=== PATIENT | male | born 2000 | race Caucasian/White ===

== ENCOUNTER 2020-04-07 12:16 | Emergency (ER) | payer BC, SELFPAY ==
--- NOTE | ~2020-04-07 | XR_ITS ---
EXAMINATION: XR facial bones min 3V, XR nasal bones min 3V DATE: 04/07/2020 12:54 (accession [id number]), 04/07/2020 12:55 (accession [id number]) INDICATION: Epistaxis and pain and swelling to the nose post injury. TECHNIQUE: 1. AP, Teague, submental and lateral views of the skull were obtained. 2. Frontal and left and right lateral views of the nasal bones were obtained. COMPARISON: None. FINDINGS: No fractures identified. Specifically the calvarium, nasal bones, pillai of the orbits and paranasal sinuses appear intact. Nasal septum is midline. No mucosal thickening or air-fluid levels appreciated within the paranasal sinuses or mastoid air cells. IMPRESSION: 1. Normal skull and nasal bones. Reviewed, dictated and finalized at location A. [facility] NURSE IMPRESSION: 1. Normal skull and nasal bones.
[2020-04-07 12:18] VITALS: BP 129/89; PULSE 81; RESP 17; TEMP 36.8; O2SAT 100
--- NOTE | 2020-04-07 13:12 | ED.GENADULT ---
HPI - General Adult General Chief complaint: Unspecified Stated complaint: nosebleed Time Seen by Provider: 04/07/20 12:46 History of Present Illness HPI narrative: Patient is a 20-year-old male who presents ER after getting hit in the face playing basketball. Was struck in the nose. Has swelling over the nasal bridge. Had a small nosebleed that has since resolved. No other complaints or issues. No LOC. Related Data Allergies Allergy/AdvReac Type Severity Reaction Status Date / Time No Known Allergies Allergy Mild Verified 04/07/20 12:21 Review of Systems ENT: Reports epistaxis, Denies mouth pain, Denies nasal congestion and Reports nasal trauma Respiratory: Respiratory: Denies cough and Denies dyspnea on exertion Neurologic: Denies dizziness and Denies syncope [facility] Past Medical History Medical History (Updated 04/07/20 @ 13:31 by Kerwin Laureano MD) Healthy adult male Surgical History Surgical History History of tonsillectomy and adenoidectomy Social History Social History Smoking status: Never smoker Gender identity (if verbalized by the patient): Male Exam Narrative: Exam Narrative: GENERAL: Well-appearing, well-nourished, and in no acute distress. HEAD: Normocephalic, atraumatic. ENT: Nares clear, no rhinorrhea or epistaxis, there is no evidence of recent bleeding in left nostril. Swelling tenderness over the bridge of the nose. Mucous membranes moist. NEURO: Alert and oriented x3. PSYCH: Normal mood and affect. Course Course Emergency Course: informed of results. d/c. Vital Signs Vital signs: Vital Signs Temperature 98.2 F 04/07/20 12:18 Pulse Rate 81 04/07/20 12:18 Respiratory Rate 17 04/07/20 12:18 Blood Pressure 129/89 04/07/20 12:18 Pulse Oximetry 100 04/07/20 12:18 Temperature 98.2 F 04/07/20 12:18 Pulse Rate 81 04/07/20 12:18 Respiratory Rate 17 04/07/20 12:18 Blood Pressure 129/89 04/07/20 12:18 Pulse Oximetry 100 04/07/20 12:18 Medical Decision Making Vital Signs Vital Signs: Vital Signs Temperature 98.2 F 04/07/20 12:18 Pulse Rate 81 04/07/20 12:18 Respiratory Rate 17 04/07/20 12:18 Blood Pressure 129/89 04/07/20 12:18 Pulse Oximetry 100 04/07/20 12:18 Temperature 98.2 F 04/07/20 12:18 Pulse Rate 81 04/07/20 12:18 Respiratory Rate 17 04/07/20 12:18 Blood Pressure 129/89 04/07/20 12:18 Pulse Oximetry 100 04/07/20 12:18 Imaging Data Radiologist's impression: ITS Impressions Face X-Ray 04/07/20 13:22 IMPRESSION: 1. Normal skull and nasal bones. Nasal Bones X-Ray 04/07/20 13:22 IMPRESSION: 1. Normal skull and nasal bones. Discharge Plan Discharge Clinical Impression: Contusion of nose Patient Disposition: Home, Self-Care Condition: Stable Instructions: Facial Contusion (ED) Additional Instructions: Return the ER if you cannot breathe, you lose consciousness, you have additional concerns. Take Tylenol or ibuprofen as needed for pain. Follow-up/Referrals: Brigitte Carolina MD [Primary Care Provider] -
== END 2020-04-07 13:33 | disposition home or self-care (01) ==
PROVIDERS: Emergency Provider Emergency Medicine; PCP Family Medicine
DX: S00.33XA Contusion of nose, initial encounter (principal); Y93.67 Activity, basketball; W21.05XA Struck by basketball, initial encounter
CPT/HCPCS: 70150; 70160; 99283

== ENCOUNTER 2020-08-15 10:59 | Outpatient (CLI) | payer BC, SELFPAY ==
[2020-08-15 11:36] LABS: Basophils Absolute Auto 0.1 K/mm3 (0.0-0.1); Basophils Percent Auto 0.4 % (0.2-1.2); Eosinophils Percent Auto 0.2 % (0-4.4); Hematocrit 44.6 % (42.0-52.0); Hemoglobin 15.1 g/dL (14.0-18.0); Immature Granulocyte Absolute 0.22 K/mm3 (0.00-0.031); Immature Granulocyte Percent A 1.1 % (0-0.5); Lymphocytes Absolute Auto 1.16 K/mm3 (0.9-3.2); Mean Corpuscular HGB Conc 33.9 g/dl (32-36); Mean Corpuscular Hemoglobin 29.1 pg (26-34); Mean Corpuscular Volume 85.9 fl (80-100); Mean Platelet Volume 8.5 fl (7.4-10.4); Monocytes Absolute Auto 1.2 K/mm3 (0.1-0.6); Neutrophils Absolute Auto 16.6 K/mm3 (1.3-6.7); Neutrophils Percent Auto 86.3 % (45.5-73.1); Platelet Count Result 280 k/mm3 (150-375); Red Blood Count 5.19 M/mm3 (4.6-6.20); Red Cell Distribution Width 12.6 % (11.5-14.5); White Blood Count 19.2 K/mm3 (4.5-10.0)
== END 2020-08-15 11:00 | disposition home or self-care (01) ==
PROVIDERS: PCP Family Medicine; Visit Provider Physician Assistant
DX: L03.90 Cellulitis, unspecified (principal)
CPT/HCPCS: 36415; 85025; 87040

== ENCOUNTER 2021-10-14 18:31 | Emergency (ER) | payer BC, SELFPAY ==
--- NOTE | 2021-10-14 18:37 | ED.URI ---
HPI - URI/Sore Throat General Chief Complaint: Upper Respiratory Infection Stated Complaint: Headaches x5 days Time Seen by Provider: 10/14/21 18:41 Source: patient and RN notes reviewed Mode of arrival: ambulatory Limitations: no limitations History of Present Illness HPI Narrative: 21-year-old male presents to the [facility] with complaints of a frontal headache for 5 days. No treatment prior to arrival. No nausea vomiting or diarrhea. No chest pain or abdominal pain. No sinus congestion or rhinorrhea. No blurry vision or change in vision. No neurologic changes. Denies any photo or phono sensitivity, denies dizziness. Using his cell phone without distress MD elicited complaint: other (Frontal headache) Related Data Home Medications Medication Instructions Recorded Confirmed No Home Medications 10/14/21 10/14/21 Allergies Allergy/AdvReac Type Severity Reaction Status Date / Time No Known Allergies Allergy Mild Verified 10/14/21 18:32 Review of Systems Review of Systems: All systems reviewed & are unremarkable except as noted in HPI and below Constitutional: Constitutional: Reports no additional constitutional complaints, Denies chills and Denies fever(s) Eyes: Eyes: Reports no additional eye complaints ENT: Reports system reviewed and no additional complaints, except as documented Cardiovascular: Cardiovascular: Reports no additional cardiovascular complaints Respiratory: Respiratory: Reports no additional respiratory complaints Gastrointestinal: Gastrointestinal: Reports no additional gastrointestinal complaints Musculoskeletal: Musculoskeletal: Reports no additional musculoskeletal complaints Integumentary/Breasts: Skin/Breast: Reports system reviewed and no additional complaints, except as docu Neurologic: Reports system reviewed and no additional complaints, except as documented Psychiatric: Psychiatric: Reports no additional psychiatric complaints Allergic/Immunologic: Allergic/Immunologic: Reports no additional allergic/immunologic complaints [facility] Past Medical History Medical History (Updated 10/14/21 @ 18:50 by Yvonne Gleason APRN) Healthy adult male Surgical History Surgical History History of tonsillectomy and adenoidectomy Social History Social History Smoking status: Never smoker Alcohol intake: never Substance use: never Substance use type: does not use Gender identity (if verbalized by the patient): Male Comments At the time of my signature, I reviewed and agree with the nursing past medical, surgical, social, and family history. There is no relevant family history pertinent to the patient complaint. Exam Const: General: healthy appearing, no acute distress and alert Nutritional Appearance: well nourished Orientation/consciousness: patient oriented x3 Limitations: no limitations HENMT: Head: normal to inspection Ears: external ears normal General nose exam: Normal external nose present Face and sinus: normal facial exam Throat: posterior oropharynx normal and uvula midline Eyes: General: appearance normal, both eyes and all related structures Pupils: Equal, round and reactive pupils present Neck: Neck: normal visual inspection, no lymphadenopathy and no meningeal signs Chest: Chest palpation & inspection: normal inspection of the chest Resp: Effort & Inspection: normal respiratory effort and no use of accessory muscles Auscultation: clear to auscultation bilaterally, no crackles, no rales, no rhonchi and no wheezes Cardio: Rate: regular rate Rhythm: regular rhythm GI: GI Palp: Yes Soft to palpation and No Tenderness to palpation present (GI) Back/Spine/Pelvis: Cervical Spine: normal cervical lordosis Thoracic/Lumbar Spine: thoracic and lumbar spine normal to inspection Skin: General skin exam: normal color Rashes: no rashes Wounds: n
[2021-10-14 18:39] VITALS: BP 131/80; PULSE 51; RESP 16; TEMP 36.4; O2SAT 100
== END 2021-10-14 18:52 | disposition home or self-care (01) ==
PROVIDERS: Emergency Provider Nurse Practitioner; PCP Family Medicine
DX: R51.9 Headache, unspecified (principal)
CPT/HCPCS: 99211; G0463

== ENCOUNTER 2022-01-12 16:01 | Emergency (ER) | payer BC, SELFPAY ==
--- NOTE | ~2022-01-12 | XR_ITS ---
EXAM: XR finger 1st LT min 2V DATE: 01/12/2022 16:35 HISTORY: hyperextended lt thumb, pain bruising proximal metacarpal . COMPARISON: None available. FINDINGS: Normal mineralization. No fracture or dislocation. No lytic or blastic lesion. Joint space s and physes are maintained. No erosion or periosteal change. Soft tissues within normal limits. IMPRESSION: No acute osseous finding in the left thumb. Reviewed, dictated and finalized at location K.
[2022-01-12 16:23] VITALS: BP 127/72; PULSE 55; RESP 18; TEMP 36.7; O2SAT 100
--- NOTE | 2022-01-12 17:02 | ED.GENADULT ---
HPI - General Adult General Chief complaint: Extremity Injury, Upper Stated complaint: lt thumb injury History of Present Illness HPI narrative: Patient is a 21-year-old male who presents to the [facility] via POV for evaluation of a left thumb injury that occurred 6 days ago. He reports injury occurred while playing basketball when he accidentally ran into another opponent hyperextended left thumb. He reports bruising, swelling pain, and limited range of motion. Umair wrap and remaining still provides some relief. Movement increases pain. Related Data Home Medications Medication Instructions Recorded Confirmed No Home Medications 10/14/21 01/12/22 Allergies Allergy/AdvReac Type Severity Reaction Status Date / Time No Known Allergies Allergy Mild Verified 01/12/22 16:53 Review of Systems Review of Systems: Pertinent negatives: fever, chills, sweats, change in appetite, poor p.o. intake, malaise, rash, warmth, numbness, tingling, loss of sensation, deformity, weakness, difficulty with ambulation/coordination, nausea, vomiting, lymphadenopathy, shortness of breath, chest pain, heart palpitations, and heart murmur. COUNT INCLUDES THE [facility] Past Medical History Medical History Healthy adult male Surgical History Surgical History History of tonsillectomy and adenoidectomy Social History Social History Smoking status: Never smoker Alcohol intake: never Substance use: never Substance use type: does not use Gender identity (if verbalized by the patient): Male Comments I have reviewed and agree with the patient's past medical, surgical, social, and family hx as documented by the RN. There is no relevant family history pertinent to the presenting complaint. Exam Narrative: GENERAL: Well-appearing, well-nourished, and in no acute distress. HEAD: Normocephalic, atraumatic. NECK: Supple. No Lymphadenopathy or nuchal rigidity appreciated. CHEST: Bilateral lung swan are clear to auscultation. No respiratory distress. No evidence of cough or pleuritic cp upon examination. HEART: Bradycardia with a rate of 55. Regular rhythm. No murmur, gallop, or rub heard. EXTREMITIES: Moderate swelling and contusion noted to left thumb. Limited ROM in L thumb that is secondary to swelling. Subtle pain with active and passive flexion and extension of L thumb. No evidence of cyanosis, laceration, abrasion, deformity, rash, or puncture. N No evidence of dislocation, ligament laxity, effusion, or pain at rest. Pulses palpable at 2+, strength 5/5, and cap refill < 3 seconds in affected extremity. DTRs normal. Gait normal. SKIN: Warm, dry, no rash. NEURO: No focal deficits. Alert and oriented x3. SPECIAL OBSERVATIONS: Smiling. Laughing. Course Course Level of Care: Express Care Visit Vital Signs Vital signs: Vital Signs Temperature 98.1 F 01/12/22 16:23 Pulse Rate 55 L 01/12/22 16:23 Respiratory Rate 18 01/12/22 16:23 Blood Pressure 127/72 01/12/22 16:23 Pulse Oximetry 100 01/12/22 16:23 Oxygen Delivery Room Air 01/12/22 16:23 Temperature 98.1 F 01/12/22 16:23 Pulse Rate 55 L 01/12/22 16:23 Respiratory Rate 18 01/12/22 16:23 Blood Pressure 127/72 01/12/22 16:23 Pulse Oximetry 100 01/12/22 16:23 Oxygen Delivery Room Air 01/12/22 16:23 Medical Decision Making Differential Diagnosis Differential Diagnosis: Sprain, strain, cellulitis, open fracture, closed fracture, gout Vital Signs Vital Signs: Vital Signs Temperature 98.1 F 01/12/22 16:23 Pulse Rate 55 L 01/12/22 16:23 Respiratory Rate 18 01/12/22 16:23 Blood Pressure 127/72 01/12/22 16:23 Pulse Oximetry 100 01/12/22 16:23 Oxygen Delivery Room Air 01/12/22 16:23 Temperature 98.1 F 01/12/22 16:23 Pulse Rate 55 L 01/12/22 16:23 Re
== END 2022-01-12 17:11 | disposition home or self-care (01) ==
PROVIDERS: Emergency Provider Nurse Practitioner Family; PCP Family Medicine
DX: S63.602A Unspecified sprain of left thumb, initial encounter (principal); W51.XXXA Accidental striking against or bumped into by another person, initial encounter; Y93.67 Activity, basketball
CPT/HCPCS: 73140; 99213; G0463

== ENCOUNTER 2022-04-24 10:54 | Emergency (ER) | payer BC, SELFPAY ==
[2022-04-24 12:06] VITALS: BP 120/81; PULSE 55; RESP 18; TEMP 36.9; O2SAT 100
--- NOTE | 2022-04-24 12:15 | ED.URI ---
HPI - URI/Sore Throat General Chief Complaint: Upper Respiratory Infection Stated Complaint: cough Time Seen by Provider: 04/24/22 12:15 Source: patient Mode of arrival: ambulatory Limitations: no limitations History of Present Illness HPI Narrative: 22-year-old male presents with complaint of cough for 5 days. Taking [id number] medications to treat his symptoms with no relief. States that he is barely slept at the last 4 days. States his mom sent him up here to see if there was something he could get to treat his cough. Afebrile. Denies chest pain and shortness of breath. Reports mild congestion, sore throat. Does not want a COVID or flu test today. All systems reviewed and negative except as noted above. Related Data Allergies Allergy/AdvReac Type Severity Reaction Status Date / Time No Known Allergies Allergy Mild Verified 04/24/22 12:06 Review of Systems Review of Systems: CONSTITUTIONAL: Denies fever, chills, or sweats. EYES: Denies visual changes, redness, or discharge. ENT: Denies rhinorrhea, congestion, sore throat, or otalgia. CARDIOVASCULAR: Denies chest pain, palpitations, or edema. RESPIRATORY: Reports cough. Denies dyspnea. GASTROINTESTINAL: Denies abdominal pain, nausea, vomiting, or diarrhea. GENITOURINARY: Denies dysuria or hematuria. SKIN: Denies rash or itching. MUSCULOSKELETAL: Denies back pain, joint pain, or myalgia. NEUROLOGIC: Denies headache, numbness, or weakness. PSYCHIATRIC: Denies anxiety or depression. All other systems reviewed are negative, except as documented in HPI. [facility] Past Medical History Medical History (Updated 04/24/22 @ 12:22 by Della Parson NP) Healthy adult male Surgical History Surgical History History of tonsillectomy and adenoidectomy Social History Social History Smoking status: Never smoker Alcohol intake: never Substance use: never Substance use type: does not use Gender identity (if verbalized by the patient): Male Comments At time of signature, agree with nursing past medical, surgical, social and family history. There is no relevant family history pertinent to the presenting complaint. Exam Narrative: GENERAL: This is a well-nourished, well-developed patient, in no apparent distress. HEAD: normocephalic, atraumatic. EYES: PERRL. Sclera clear/white. Vision is grossly intact. EARS: External ears normal, auditory canals clear and without drainage, TMs normal without perforation. Hearing grossly intact. NOSE: External nose normal with no obvious nasal discharge, nares without redness, no rhinorrhea. THROAT: Mucous membranes moist, posterior pharynx clear. NECK: Neck supple, non-tender without lymphadenopathy, masses or thyromegaly. CARDIOVASCULAR: Regular rate and rhythm without murmurs, gallops, or rubs. RESPIRATORY: Clear to auscultation. Breath sounds equal bilaterally. No wheezes, rales, or rhonchi. SKIN: warm, Dry, intact with no suspicious lesions or rash, good texture and turgor. NEURO: awake, alert, and oriented to person, place and time. There were no obvious focal neurologic abnormalities. EXTREMITIES: No joint tenderness, effusion, or edema noted. Course Course Level of Care: Express Care Visit Vital Signs Vital signs: Vital Signs Temperature 36.9 C 04/24/22 12:06 Pulse Rate 55 L 04/24/22 12:06 Respiratory Rate 18 04/24/22 12:06 Blood Pressure 120/81 04/24/22 12:06 Pulse Oximetry 100 04/24/22 12:06 Oxygen Delivery Room Air 04/24/22 12:06 Temperature 36.9 C 04/24/22 12:06 Pulse Rate 55 L 04/24/22 12:06 Respiratory Rate 18 04/24/22 12:06 Blood Pressure 120/81 04/24/22 12:06 Pulse Oximetry 100 04/24/22 12:06 Oxygen Delivery Room Air 04/24/22 12:06 At time of signature, agree with nursing past medical, surgical, social and family history. There is no releva
== END 2022-04-24 12:26 | disposition home or self-care (01) ==
PROVIDERS: Emergency Provider Nurse Practitioner Family; PCP Family Medicine
DX: J06.9 Acute upper respiratory infection, unspecified (principal)
CPT/HCPCS: 99213; G0463

== ENCOUNTER 2023-02-15 15:34 | Emergency (ER) | payer BC, SELFPAY ==
--- NOTE | ~2023-02-15 | XR_ITS ---
EXAM: XR ankle LT min 3V DATE: 02/15/2023 15:50 HISTORY: rolled ankle yesterday felt lateral pop pain . COMPARISON: None available. FINDINGS: Normal mineralization. No fracture or dislocation. No lytic or blastic lesion. Joint space s are maintained. No erosion or periosteal change. Soft tissues within normal limits. IMPRESSION: No acute osseous finding in the left ankle. Reviewed, dictated and finalized at location K.
--- NOTE | 2023-02-15 15:37 | ED.LOWEXIN ---
HPI - Extremity Injury (Lower) General Chief Complaint: Extremity Injury, Lower Stated Complaint: Lt Ankle Pain Source: patient and RN notes reviewed History of Present Illness HPI Narrative: 23 yo M presents to urgent care with complaints of left lateral ankle pain. Pt states he first rolled this ankle 2 weeks ago while playing basketball. Pt states he took a break from basketball and then went back to play again last night and rolled it again. Pt states he felt a pop last night. Denies falling or any head injury. Denies any numbness or tingling. Related Data Home Medications Medication Instructions Recorded Confirmed No Home Medications 02/15/23 02/15/23 Allergies Allergy/AdvReac Type Severity Reaction Status Date / Time No Known Allergies Allergy Mild Verified 02/15/23 15:39 Review of Systems Review of Systems: CONSTITUTIONAL: Denies fever, chills, or sweats. EYES: Denies visual changes, redness, or discharge. ENT: Denies otalgia and sore throat CARDIOVASCULAR: Denies chest pain, palpitations, or edema. RESPIRATORY: Denies cough or dyspnea. GASTROINTESTINAL: Denies abdominal pain, nausea, vomiting, or diarrhea. GENITOURINARY: Denies dysuria or hematuria. SKIN: Denies rash or itching. MUSCULOSKELETAL: left ankle pain NEUROLOGIC: Denies headache, numbness, or weakness. Pertinent positives per HPI. [facility] Past Medical History Medical History (Updated 02/15/23 @ 15:58 by Lakshmi Lee, NATALI) Healthy adult male Surgical History Surgical History History of tonsillectomy and adenoidectomy Social History Social History Smoking status: Never smoker Second hand tobacco smoke exposure: No Alcohol intake: never Substance use: never Substance use type: does not use Lack of Transportation: No Lack of Food: Never True Current Housing: I Have Housing Concerned About Future Housing: No Difficulty Paying Gas/Electric Bills: No Difficulty Paying for Meds: No Currently Unemployed: No Education: High School Diploma/GED Difficulty w/ Childcare or Family Care: No Living arrangements: with family Gender identity (if verbalized by the patient): Male Spiritual care concerns: No Agree to blood products: Yes Comments At the time of my signature, I reviewed and agree with the nursing past medical, surgical, social, and family history. There is no relevant family history pertinent to the patient complaint. Exam Narrative: GENERAL: This is a well-nourished, well-developed patient, in no apparent distress. HEAD: normocephalic, atraumatic. EYES: Sclera clear/white. Vision is grossly intact. EARS: External ears normal, auditory canals clear and without drainage. Hearing grossly intact. NOSE: External nose normal with no obvious nasal discharge, nares without redness, no rhinorrhea. THROAT: Mucous membranes moist, posterior pharynx clear. NECK: Neck supple, non-tender without lymphadenopathy, masses or thyromegaly. CARDIOVASCULAR: Regular rate RESPIRATORY: No respiraotry distress SKIN: warm, intact with no suspicious lesions or rash, good texture and turgor. NEURO: awake, alert, and oriented to person, place and time. There were no obvious focal neurologic abnormalities. EXTREMITIES: Mild edema and tenderness to left lateral malleolus BACK: Nontender without deformity or crepitus. No flank tenderness. Course Course Level of Care: Express Care Visit Vital Signs Vital signs: Vital Signs Temperature 97.8 F 02/15/23 15:40 Pulse Rate 56 L 02/15/23 15:40 Respiratory Rate 16 02/15/23 15:40 Blood Pressure 129/69 02/15/23 15:40 Pulse Oximetry 100 02/15/23 15:40 Oxygen Delivery Room Air 02/15/23 15:40 Temperature 97.8 F 02/15/23 15:40 Pulse Rate 56 L 02/15/23 15:40 Respiratory Rate 16 02/15/23 15:40 Blood Pressure 129/69
[2023-02-15 15:40] VITALS: BP 129/69; PULSE 56; RESP 16; TEMP 36.6; O2SAT 100
== END 2023-02-15 16:00 | disposition home or self-care (01) ==
PROVIDERS: Emergency Provider Nurse Practitioner Family; PCP Family Medicine
DX: S93.402A Sprain of unspecified ligament of left ankle, initial encounter (principal); S96.912A Strain of unspecified muscle and tendon at ankle and foot level, left foot, initial encounter; X50.9XXA Other and unspecified overexertion or strenuous movements or postures, initial encounter; Y93.67 Activity, basketball
CPT/HCPCS: 73610; 99213; G0463